=== PATIENT | male | born 1980 | race Caucasian/White ===

== ENCOUNTER → 2021-03-13 | Day surgery (SDC) | payer MEDICARE ==
[~2021-03-13] VITALS: Ht 177.8 cm; Wt 83.9 kg
[~2021-03-13] MED LIST: CELEXA20 MG PO; POTASSIUM600 MG PO; PROTONIX 40MG T40 MG PO; SUBOXONE 2 MG-1 EACH PO; TESTOSTERO200 MG/1 M IM
== END | disposition home or self-care (01) ==
LOC: FAS 08:21
DX: K31.9 Disease of stomach and duodenum, unspecified (principal); K21.00 Gastro-esophageal reflux disease with esophagitis, without bleeding; K63.5 Polyp of colon; K44.9 Diaphragmatic hernia without obstruction or gangrene; Z80.0 Family history of malignant neoplasm of digestive organs
CPT/HCPCS: 88305; J2704; J7120